=== PATIENT | male | born 1965 | race Caucasian/White ===

== ENCOUNTER 2023-02-14 13:29 | Outpatient (REF) | payer BC, SELFPAY ==
--- NOTE | 2023-02-14 13:45 | SKI_PTH ---
PATIENT: VIDYA LIVE LOC: [facility] U#:[id number] AGE/SX: 57/M ROOM: RE02/14/[address]: Narciso Canas : 1965 BED: DIS: 02/14/2023 SPEC #: [id number] RECD: 02/14/23 17:44 STATUS: DANIEL REQ #: [id number] BETSY: 02/14/23 13:[address]: Narciso Canas DEPT: Surgical Specimen RECD BY: Brooklyn Vega ENTERED: 02/14/23 17:44 SP TYPE: KOBE URIBE DR: Ray Diaz Tissues: 1 - SKIN BIOPSY(SHAVE/PUNCH) Procedures: GROSS AND MICRO LEVEL 3 Comments: [id number]
== END 2023-02-14 13:30 | disposition home or self-care (01) ==
LOC: LBN 13:29
PROVIDERS: PCP Family Medicine; Visit Provider Student in an Organized Health Care Education/Training Program
DX: L72.8 Other follicular cysts of the skin and subcutaneous tissue (principal); L98.499 Non-pressure chronic ulcer of skin of other sites with unspecified severity
CPT/HCPCS: 88304; 88305